=== PATIENT | female | born 1990 | race Hispanic/Latino ===

== ENCOUNTER → 2024-10-22 11:47 | Outpatient (REF) | payer OTHER, SELFPAY ==
[2024-10-22 13:13] LABS: ALT (SGPT) 16 U/L (0-35); AST (SGOT) 20 U/L (14-36); Albumin 4.9 g/dl (3.5-5.0); Alkaline Phosphatase 74 U/L (38-126); Blood Urea Nitrogen 13 mg/dl (7-17); Calcium 9.6 mg/dl (8.4-10.2); Carbon Dioxide 22 mmol/L (22-30); Chloride 108 mmol/L (98-107); Glucose 95 mg/dl (70-99); HDL Cholesterol 55 mg/dl; LDL Cholesterol, Calculated 106 mg/dl; Potassium 4.5 mmol/L (3.5-5.1); Sodium 140 mmol/L (135-145); Total Bilirubin 0.6 mg/dl (0.2-1.3); Total Cholesterol 176 mg/dl (50-199); Total Protein 7.7 g/dl (6.3-8.2); Triglyceride 76 mg/dl (10-149); Very Low Density Lipoprotein 15 mg/dl (0-30); eGFR > 60.00
[2024-10-22 13:31] LABS: TSH Reflex To Free T4 2.18 uIU/ml (0.47-4.68)
[2024-10-22 13:34] LABS: Urine Albumin Negative (Neg - Trace); Urine Bilirubin Negative (Negative); Urine Character Clear (Clear); Urine Color Yellow; Urine Glucose Negative (Negative); Urine Ketone Negative (Negative); Urine Leukocyte Negative (Negative); Urine Nitrite Negative (Negative); Urine Occult Blood 4+ (Negative); Urine Specific Gravity 1.015 (<1.030); Urine Urobilinogen Negative (Neg - 1+)
[2024-10-22 15:05] LABS: Urine Amorphous Seen
[2024-10-22 15:07] LABS: Urine White Cell 0-2 /HPF (0-5)
[2024-10-23 16:43] LABS: Ceruloplasmin 28 mg/dL (16-45)
[2024-10-24 03:25] LABS: Copper, Serum 121.1 ug/dL (80.0-155.0); Zinc 73.9 ug/dL (60.0-120.0)
== END ==
LOC: CLINIC 11:47
PROVIDERS: ATTENDING PHYSICIAN Family Medicine
DX: R07.9 Chest pain, unspecified (principal); Z00.01 Encounter for general adult medical examination with abnormal findings
CPT/HCPCS: 36415; 80053; 80061; 81003; 81015; 82390; 82525; 84443; 84630; 93005

== ENCOUNTER → 2024-11-27 10:59 | Outpatient (REF) | payer OTHER, SELFPAY ==
[2024-11-27 12:05] LABS: % Basophils 0.7 % (0-2); % Eosinophils 1.1 % (0-6); % Immature Granulocytes 0.2 % (0-0.5); % Lymphocytes 30.4 % (20.5-51.1); % Monocytes 9.5 % (1.7-9.3); % Neutrophils 58.1 % (42.2-75.2); Absolute Basophils 0.1 10^3/uL (0-0.2); Absolute Eosinophils 0.1 10^3/uL (0-0.7); Absolute Lymphocytes 2.6 10^3/uL (1.2-3.4); Absolute Monocytes 0.8 10^3/uL (0.1-0.6); Absolute Neutrophils 4.9 10^3/uL (1.4-6.5); Hematocrit 43.4 % (37.0-47.0); Hemoglobin 13.8 g/dL (12.0-16.0); Mean Corp Hgb Conc. 31.8 g/dL (33.0-37.0); Mean Corpuscular Hgb 24.7 pg (27.0-31.0); Mean Corpuscular Volume 77.8 fL (81.0-99.0); Mean Platelet Volume 10.6 fL (7.4-10.4); Nucleated Red Blood Cells % 0 %; Platelet Count 309 10^3/uL (130-400); Red Blood Cell Count 5.58 10^6/uL (4.20-5.40); Red Cell Dist. Width 15.9 % (11.5-14.5); White Blood Cell Count 8.5 10^3/uL (4.8-10.8)
[2024-11-27 12:45] LABS: Iron 45 ug/dl (37-170)
[2024-11-27 12:54] LABS: Percent Saturation 12 % (20-50); Total Iron Binding Capacity 366 ug/dl (265-497)
== END ==
LOC: CLINIC 10:59
PROVIDERS: ATTENDING PHYSICIAN Family Medicine
DX: N94.6 Dysmenorrhea, unspecified (principal)
CPT/HCPCS: 36415; 83540; 83550; 85025

== ENCOUNTER → 2024-12-31 10:18 | Outpatient (REF) | payer OTHER, SELFPAY | LOC: RAD 10:18 | PROVIDERS: ATTENDING PHYSICIAN Family Medicine; FAMILY PHYSICIAN Nurse Practitioner Adult Health | DX: E28.2 Polycystic ovarian syndrome (principal) | CPT/HCPCS: 76830; 76856 ==

== ENCOUNTER → 2025-01-09 09:44 | Outpatient (REF) | payer OTHER, SELFPAY ==
[2025-01-12 08:39] LABS: HPV, High Risk Not Detected; HPV, High Risk Source Cervical
== END ==
LOC: CLINIC 09:44
PROVIDERS: ATTENDING PHYSICIAN Obstetrics & Gynecology Gynecology
DX: Z12.4 Encounter for screening for malignant neoplasm of cervix (principal)
CPT/HCPCS: 87624

== ENCOUNTER → 2025-03-26 13:50 | Outpatient (REF) | payer OTHER, SELFPAY ==
[2025-03-26 15:36] LABS: FSH 3.6 mIU/ml
== END ==
LOC: CLINIC 13:50
PROVIDERS: OTHER PHYSICIAN Family Medicine
DX: E83.00 Disorder of copper metabolism, unspecified (principal); E60 Dietary zinc deficiency; N92.6 Irregular menstruation, unspecified
CPT/HCPCS: 36415; 82390; 82627; 82670; 83001; 83002; 83498; 84146; 84270; 84402; 84403